=== PATIENT | male | born 1965 | race Native Hawaiian/Other Pacific Islander ===

== ENCOUNTER 2022-12-16 10:37 | Outpatient (CLI) | payer OTHER ==
[~2022-12-16 10:37] MED LIST: ASPIRIN/ENTERIC81 MG PO
== END 2022-12-16 19:26 | disposition home or self-care (01) ==
LOC: RAD 10:37
PROVIDERS: ATTEND Nurse Practitioner Family
DX: G56.01 Carpal tunnel syndrome, right upper limb (principal)

== ENCOUNTER 2023-03-16 11:10 | Outpatient (CLI) | payer OTHER | END 2023-03-16 19:01 | disposition home or self-care (01) | LOC: RAD 11:10 | PROVIDERS: ATTEND Nurse Practitioner Family | DX: M25.512 Pain in left shoulder (principal) ==